=== PATIENT | female | born 1970 | race Native Hawaiian/Other Pacific Islander ===

== ENCOUNTER 2019-10-15 09:33 | Emergency (ER) | payer OTHER ==
[~2019-10-15] VITALS: Ht 157.5 cm; Wt 93.9 kg
[2019-10-15 15:27] LABS: PLATELET COUNT 290 K/uL (152-353)
[2019-10-15 15:31] LABS: POTASSIUM 3.8 mmol/L (3.6-5.2)
[2019-10-19 16:08] VITALS: BP 109/68; TEMP 98.4
== END 2019-10-19 16:08 | disposition home or self-care (01) ==
LOC: ED 09:33
PROVIDERS: General Practice
DX: F23 Brief psychotic disorder (principal); Z11.59 Encounter for screening for other viral diseases
CPT/HCPCS: 36415; 80053; 80307; 80320; 80329; 81000; 85027; 87635; 93005; 96372; 99285; J1200; J1630; J2060; U00003